=== PATIENT | female | born 1950 | race Caucasian/White ===

== ENCOUNTER 2021-02-25 11:47 | Outpatient (CLI) | payer MEDICARE, OTHER, SELFPAY ==
[2021-02-25] MEDS: 0.9% Saline Lock 10 ML Syringe IV (12:05)
[2021-02-25 12:10] VITALS: BP 105/69; PULSE 64; RESP 16; TEMP 36.6; O2SAT 97; BMI 24.9
[2021-02-25 13:00] VITALS: BP 106/64; PULSE 53; RESP 16; TEMP 36.9; O2SAT 96
[2021-02-25 14:00] VITALS: BP 123/71; PULSE 57; RESP 16; TEMP 36.6; O2SAT 98
== END 2021-02-25 14:00 | disposition home or self-care (01) ==
LOC: MS3OUT 11:51 → MS3 11:52
PROVIDERS: Visit Provider Nurse Practitioner Adult Health
DX: Z23 Encounter for immunization (principal); U07.1 COVID-19
CPT/HCPCS: J7050; M0245; Q0245; A4216